=== PATIENT | female | born 1975 | race Caucasian/White ===

== ENCOUNTER → 2016-12-28 | Outpatient (CLI) | payer OTHER ==
[~2016-12-28] MED LIST: CIPRO250 MG PO; CLARITIN10 MG PO; MOTRIN800 MG PO; NAPROSYN500 MG PO; NAPROXEN500 M1 PO; NKHM; PREDNICOT20 MG PO; VICODIN 5/500 505 MG PO; VITAMIN D50000 I3 PO; ZITHROMAX250 MG PO; ZOVIRAX800 MG PO; ZYRTEC10 M2 PO; Zofran4 MG PO
== END | disposition home or self-care (01) ==
LOC: MAMMO 15:31
DX: Z12.31 Encounter for screening mammogram for malignant neoplasm of breast (principal)

== ENCOUNTER → 2017-01-11 | Outpatient (CLI) | payer OTHER | END | disposition home or self-care (01) | LOC: MAMMO 14:17 | DX: N60.01 Solitary cyst of right breast (principal) ==